=== PATIENT | female | born 1970 | race Caucasian/White ===

== ENCOUNTER 2020-01-11 07:47 | Outpatient (CLI) | payer OTHER | END 2020-01-11 07:48 | disposition home or self-care (01) | LOC: LAB 07:47 | DX: Z11.59 Encounter for screening for other viral diseases (principal) | CPT/HCPCS: 81599 ==

== ENCOUNTER 2020-07-08 15:50 | Outpatient (CLI) | payer OTHER | END 2020-07-08 15:51 | disposition home or self-care (01) | LOC: COV 15:50 | PROVIDERS: ATTEND Family Medicine | DX: Z20.828 Contact with and (suspected) exposure to other viral communicable diseases (principal) ==